=== PATIENT | male | born 1935 | race Caucasian/White ===

== ENCOUNTER 2023-03-06 12:05 | Observation (INO) | payer MEDICARE, SELFPAY ==
[2023-03-06] VITALS (27 sets, daily range): BP systolic 132–158; BP diastolic 63–87; PULSE 68–79; RESP 17–26; TEMP 36.3–36.9; O2SAT 84–100
--- NOTE | ~2023-03-06 | XR_ITS ---
EXAMINATION: XR hip RT min 2V DATE: 03/14/2023 14:00 INDICATION: Right hip pain. TECHNIQUE: 2 views of right hip were obtained. COMPARISON: CT abdomen and pelvis 04/10/2023 FINDINGS: Bone alignment normal. No fracture. There is moderate right hip osteoarthritis. IMPRESSION: 1. Moderate right hip osteoarthritis. Reviewed, dictated and finalized at location A.
--- NOTE | ~2023-03-06 | CT_ITS ---
Noncontrast CT scan of the thoracolumbar spine CLINICAL HISTORY: Trauma TECHNIQUE: Axial noncontrast imaging of the thoracolumbar spine was performed. Sagittal and coronal r eformatted images were constructed. Dose reduction technique was used on this scan by utilizing autom ated exposure control and iterative reconstruction technique. The dose-length product (DLP) was 1446. 91 mGy-cm. Thoracic spine findings: There is no fracture or subluxation of the thoracic spine. There is kyphosis . There are diffuse anterior flowing osteophytes with minimal disc space narrowing, consistent with D NEY. No definite significant disc bulge or herniation seen in the thoracic spine. No definite canal stenos is or cord compression. There are multiple subacute to chronic rib fracture deformities on the right side. Extensive calcified right pleural plaques are present. There is probable moderate to severe emp hysema in the right lung with right basilar scarring or atelectasis. Lumbar spine findings: There is a comminuted fracture involving the superior aspect of the L2 vertebr al body, fracture through anterior flowing osteophyte as well, and fracture extending to the junction of the bilateral pedicles with the vertebral body. There is a probable longitudinal fracture line ex tending inferiorly to the posterior aspect of the vertebral body. There is minimal loss of height. No other fracture or subluxation seen. Intervertebral disc spaces are relatively well-preserved. No definite canal stenosis or cord compression seen in the lumbar spine. There is moderate to advance d left neural foraminal narrowing at L5-S1. There is moderate to advanced left neural foraminal narro wing at L4-L5. There is mild right neural foraminal narrowing at L3-L4 and L4-L5. There is mild to mo derate bilateral neural foraminal narrowing at L2-L3. Impression: Comminuted, predominantly horizontal fracture through L2 vertebral body, with additional fracture evan es extending to the junction of the bilateral pedicles with the L2 vertebral body. No fracture or subluxation thoracic spine. Degenerative changes, as above. Reviewed, dictated and finalized at [facility]. Impression: Comminuted, predominantly horizontal fracture through L2 vertebral body, with a dditional fracture lines extending to the junction of the bilateral pedicles wi th the L2 vertebral body. No fracture or subluxation thoracic spine. Degenerative changes, as above.
--- NOTE | ~2023-03-06 | US_ITS ---
EXAMINATION: US venous doppler [facility] DATE: 03/07/2023 13:27 INDICATION: Lower limb swelling TECHNIQUE: Grayscale ultrasound images without and with compression and Doppler ultrasound images of the bilateral lower extremity veins were obtained. COMPARISON: None. FINDINGS: The visualized portions of right common femoral vein, profunda (deep) femoral vein, femoral vein, pop liteal vein, posterior tibial veins, peroneal veins, gastrocnemius vein and greater saphenous vein ou tflow are patent. The visualized portions of left common femoral vein, profunda femoral vein, femoral vein, popliteal v ein, posterior tibial veins, peroneal veins, gastrocnemius vein and greater saphenous vein outflow ar e patent. IMPRESSION: 1. No deep venous thrombosis in either lower limb. Reviewed, dictated and finalized at location A.
--- NOTE | ~2023-03-06 | CT_ITS ---
EXAMINATION: CT abdomen pelvis wo con DATE: 03/11/2023 14:49 INDICATION: pain TECHNIQUE: Computed tomography (CT) of the abdomen and pelvis was performed without intravenous contr ast. Automated exposure control and iterative reconstruction technique were employed. The dose-length product was 1111.63 mGy-cm. COMPARISON: CT thoracic lumbar 03/06/2023. FINDINGS: Lower thorax: Aortic and coronary artery calcification. Motion artifact. Left basilar atelectasis. Mo derate hiatal hernia. Liver: Normal. Biliary/Gallbladder: Multiple gallstones. Mild gallbladder dilation. Mild surrounding inflammatory ch yony. No bile duct dilation. Pancreas: Mild atrophy. Spleen: Normal. Adrenals:Somewhat nodular left adrenal. Right adrenal adenoma. Kidneys: Simple left midpole cyst. Moderate left perinephric stranding. Right renal atrophy. GI tract: No small or large bowel dilation. Appendix not confidently visualized, may be surgically ab sent or obscured by motion Diverticulosis without diverticulitis. Mesentery/Peritoneum: No ascites, mass, or free air. Retroperitoneum: No mass. Atherosclerotic abdominal aortic and/or arterial calcifications. Pelvis: Mild wall thickening and inflammatory change in a distended urinary bladder. Prostatomegaly. With prostatic calcification. Soft Tissues: Mild body wall edema. Small uncomplicated fat-containing umbilical and bilateral inguin al hernias. Bones: No acute osseous finding. Multiple old right rib fractures. Redemonstration of the L2 burst f racture IMPRESSION: Cholelithiasis with gallbladder hydrops and inflammation, may represent cholecystitis in the appropri ate clinical context. Bladder wall thickening/inflammation may be secondary to cystitis and/or outlet obstruction. Reviewed, dictated and finalized at location K. IMPRESSION: Cholelithiasis with gallbladder hydrops and inflammation, may represent cholecy stitis in the appropriate clinical context. Bladder wall thickening/inflammation may be secondary to cystitis and/or outlet obstruction.
[2023-03-06] MEDS: KETOROLAC 15 MG/ML VIAL (*BKC) IV PUSH (13:32)
[2023-03-06] MEDS: fentaNYL CITRATE INJ (*CRX) 100 MCG/2 ML VIAL 25 MCG IV PUSH (13:33)
--- NOTE | 2023-03-06 15:46 | ED.FALL ---
HPI - Fall General Chief Complaint: Fall Stated Complaint: fall Time Seen by Provider: 03/06/23 12:46 History of Present Illness HPI Narrative: Patient is an 88-year-old male who presents ER with low back pain. Patient was making a turn at home when he fell 3 days ago. He fell directly onto his buttock. He is able to get up and move around. Over the last few days he has had slow increase in the discomfort in his low back. He is now unable to sit up in bed or walk around due to his pain. No lower extremity numbness or weakness. No difficulty with urination. He did not strike his head or lose consciousness. Related Data Home Medications Medication Instructions Recorded Confirmed [id number] 300 mcg-K 60 1 tablet PO DAILY 06/04/19 02/15/23 mcg-lycop 600 mcg-lutein 300 mcg tablet (Centrum Silver Men) cholecalciferol (vitamin D3) 50 2,000 unit PO DAILY 08/08/19 02/15/23 mcg (2,000 unit) tablet cyanocobalamin (vitamin B-12) 1,000 mcg PO DAILY 01/06/20 02/15/23 1,000 mcg tablet sacubitril 24 mg-valsartan 26 mg 1 tablet PO BID 04/21/22 02/15/23 tablet (Entresto) empagliflozin 10 mg tablet 10 mg PO QAM 02/15/23 02/15/23 (Jardiance) Allergies Allergy/AdvReac Type Severity Reaction Status Date / Time Penicillins Allergy Unknown Unknown Verified 03/06/23 17:23 Review of Systems Review of Systems: All systems reviewed & are unremarkable except as noted in HPI and below Constitutional: Constitutional: Denies chills, Denies fatigue and Denies fever(s) ENT: Denies nasal congestion and Denies sore throat Cardiovascular: Cardiovascular: Denies chest pain, Denies rapid heart rate and Denies radiating jaw, neck or arm pain Respiratory: Respiratory: Denies cough and Denies dyspnea Gastrointestinal: Gastrointestinal: Denies abdominal pain, Denies nausea and Denies vomiting Musculoskeletal: Musculoskeletal: Reports back pain, Denies arthralgias and Denies joint swelling Neurologic: Denies headache(s), Denies focal weakness and Denies numbness PMF Past Medical History Medical History (Updated 03/06/23 @ 17:28 by Anthony Rachel MD) Abnormal fasting glucose glucose 104 and hemoglobin A1c 6.0 on 07/14/2021. Glucose 94.1, hemoglobin A1c 6.3 07/28/2022. Fasting glucose 112 on 01/05/2023. Acute non-recurrent maxillary sinusitis Anemia hemoglobin 11.5, hematocrit 37.5, iron 80, vitamin B12 726 and folic acid 12.9 on 07/14/2021. hemoglobin 10.5, hematocrit 34.7, MCV 100.3, iron 75 with 30% saturation and ferritin 46 with vitamin B12 448 and folic acid 15.3 on 07/28/2022. At high risk for falls (~2021) BMI 30.0-30.9,adult BMI 31.0-31.9,adult BPH without obstruction/lower urinary tract symptoms CHF (congestive heart failure) (04/20/22) diastolic dysfunction Chronic anxiety Edema, peripheral Essential (primary) hypertension Hyperproteinemia protein level chronically elevated with current level 9.8 on 07/14/2021 Hypothyroidism TSH 4.01 on 07/14/2021. TSH 3.94 on 07/28/2022. Lung cancer Mild intermittent asthma in adult without complication Mixed hyperlipidemia total cholesterol 120, triglycerides 99, HDL 25, LDL 75 on 07/14/2021. Total cholesterol 103, triglycerides 134, HDL 21 and LDL 55 on 07/28/22. Cholesterol 101, triglycerides 101, HDL 19, LDL 62 on 01/05/2023. Obesity (BMI 30.0-34.9) Obstructive sleep apnea (09/25/20) home sleep study 09/25/2020 with AHI of 8.9 with oxygen desaturation to 75% ordered by ironer sock Osteoarthritis involving multiple joints on both sides of body Seasonal allergic rhinitis Tachycardia UTI (urinary tract infection) urinalysis negative on 07/14/2021 Vitamin B12 deficiency anemia level 726 on 07/14/2021. Normal at 448 with folic acid 15.3 and hemoglobin 10.5 on 07/28/2022. Vitamin D deficiency, unspecified level normal at 34.8 on 07/14/2021. Normal at 53.7 on 07/28/2022. Social History Social History (Updated 08/03/22 @ 13:17 by Michelle Snow MA) [place]
[2023-03-06 16:10] LABS: Basophils Percent Auto 0.1 % (0.2-1.2); Hemoglobin 9.8 g/dL (14.0-18.0); Immature Granulocyte Absolute 0.06 K/mm3 (0.00-0.031); Immature Granulocyte Percent A 0.9 % (0-0.5); Lymphocytes Percent Auto 28.4 % (18.3-44.2); Mean Corpuscular HGB Conc 30.6 g/dl (32-36); Mean Corpuscular Hemoglobin 29.6 pg (26-34); Mean Corpuscular Volume 96.7 fl (80-100); Mean Platelet Volume 9.4 fl (7.4-10.4); Monocytes Absolute Auto 0.7 K/mm3 (0.1-0.6); Monocytes Percent Auto 10.1 % (2.6-8.5); Neutrophils Absolute Auto 4.1 K/mm3 (1.3-6.7); Neutrophils Percent Auto 60.5 % (45.5-73.1); Platelet Count Result 170 k/mm3 (150-375); Red Blood Count 3.31 M/mm3 (4.6-6.20); Red Cell Distribution Width 17.3 % (11.5-14.5); White Blood Count 6.7 K/mm3 (4.5-10.0)
[2023-03-06 16:19] LABS: Alanine Aminotransferase 12 U/L (6-50); Albumin Level 3.3 g/dL (3.5-5.1); Alkaline Phosphatase 82 U/L (38-126); Anion Gap 7 mmol/L (8-16); Aspartate Amino Transferase 29 U/L (17-59); Bilirubin,Total 0.7 mg/dL (0.2-1.3); Blood Urea Nitrogen 29 mg/dL (9-20); Calcium 9.4 mg/dL (8.4-10.2); Carbon Dioxide 32 mmol/L (22-30); Chloride 98 mmol/L (98-107); Estimated CRCL calculation 57 ml/min; Estimated Glomerular Filt Rate > 60; Glucose 111 mg/dL (65-110); Potassium 4.1 mmol/L (3.4-5.0); Sodium 137 mmol/L (137-145)
[2023-03-06 16:22] LABS: INR 1.3; Prothrombin Time 16.8 Seconds (11.1-14.7)
[2023-03-06 16:23] LABS: Partial Thromboplastin Time 39.9 SECONDS (22.3-36.8)
[2023-03-06] MEDS: HYDROcodone/acetaminophen (*CRX) 5-325 MG TABLET 1 TAB PO ×2 (17:19→20:40)
--- NOTE | 2023-03-06 17:28 | PC.NURSE ---
dinner tray ordered for pt and requested it to be sent to room 307
--- NOTE | 2023-03-06 23:02 | PM.IMHP ---
H&P: HPI History of Present Illness Date/Time: 03/06/23 17:30 Chief Complaint: Back pain. Narrative: This is a very pleasant 88-year-old male with multiple medical problems including history of lung cancer status post right middle lobectomy, diastolic congestive heart failure, hypertension, hypothyroidism, asthma, and other comorbidities who presented to the emergency department via private vehicle from home for evaluation of back pain. The patient provides the following history. Last he was standing with his wheeled walker when he turned to say something to his . When he turned back around his foot got tripped up in the will and he fell down onto his right buttock and side. He had immediate pain in the right low back and was able to get himself to the doorway however could not pull himself up. Son came over and helped him up to bed. He was able to fall asleep after taking some Tylenol but he reports showed severe, sharp, catching pain every time he stands up. His pain is somewhat better when sitting straight forward. Due to persistent pain he decided to come in today for evaluation. He denies lower extremity weakness, numbness, paresthesias, and difficulties urinating. He denies head trauma and loss of consciousness in the fall and has no other complaints of pain. CT of the thoracic and lumbar spine showed a comminuted, predominantly horizontal fracture through to L2 vertebral body with additional fracture lines extending to the junction of the bilateral pedicles with in the L2 vertebral body. The ED physician spoke with the neurosurgeon on-call, Dr. Bingham, and she recommends the patient be admitted for bed rest and he will require bracing tomorrow. Review of Systems Review of Systems: Twelve systems were reviewed and are negative except for as per HPI. [facility] Past Medical History Medical History (Updated 03/06/23 @ 23:11 by Carla Anderson PA-C) Abnormal fasting glucose glucose 104 and hemoglobin A1c 6.0 on 07/14/2021. Glucose 94.1, hemoglobin A1c 6.3 07/28/2022. Fasting glucose 112 on 01/05/2023. Acute non-recurrent maxillary sinusitis Anemia hemoglobin 11.5, hematocrit 37.5, iron 80, vitamin B12 726 and folic acid 12.9 on 07/14/2021. hemoglobin 10.5, hematocrit 34.7, MCV 100.3, iron 75 with 30% saturation and ferritin 46 with vitamin B12 448 and folic acid 15.3 on 07/28/2022. At high risk for falls (~2021) BMI 30.0-30.9,adult BMI 31.0-31.9,adult BPH without obstruction/lower urinary tract symptoms CHF (congestive heart failure) (04/20/22) diastolic dysfunction Chronic anxiety Edema, peripheral Essential (primary) hypertension Hyperproteinemia protein level chronically elevated with current level 9.8 on 07/14/2021 Hypothyroidism TSH 4.01 on 07/14/2021. TSH 3.94 on 07/28/2022. Lung cancer Mild intermittent asthma in adult without complication Mixed hyperlipidemia total cholesterol 120, triglycerides 99, HDL 25, LDL 75 on 07/14/2021. Total cholesterol 103, triglycerides 134, HDL 21 and LDL 55 on 07/28/22. Cholesterol 101, triglycerides 101, HDL 19, LDL 62 on 01/05/2023. Obesity (BMI 30.0-34.9) Obstructive sleep apnea (09/25/20) home sleep study 09/25/2020 with AHI of 8.9 with oxygen desaturation to 75% ordered by aligner Osteoarthritis involving multiple joints on both sides of body Seasonal allergic rhinitis Tachycardia UTI (urinary tract infection) urinalysis negative on 07/14/2021 Vitamin B12 deficiency anemia level 726 on 07/14/2021. Normal at 448 with folic acid 15.3 and hemoglobin 10.5 on 07/28/2022. Vitamin D deficiency, unspecified level normal at 34.8 on 07/14/2021. Normal at 53.7 on 07/28/2022. Surgical History Surgical History (Updated 03/06/23 @ 23:08 by Carla Anderson PA-C) History of lobectomy of lung Right middle lobectomy for lung cancer. History of transurethral resection of prostate Family History Family History (Updated 03/06/23 @ 23:08 by Carla Anderson PA-C) [facility]
[2023-03-06] MEDS: ESCITALOPRAM OXALATE 10 MG TABLET PO (23:57)
[2023-03-06] MEDS: SACUBITRIL/VALSARTAN 24-26 MG TABLET 1 TAB PO (23:57)
[2023-03-07 06:00] VITALS: BP 110/79; PULSE 74; RESP 20; TEMP 36.5; O2SAT 100
[2023-03-07] MEDS: HYDROcodone/acetaminophen (*CRX) 5-325 MG TABLET 1 TAB PO ×3 (06:26→20:55)
[2023-03-07] MEDS: LEVOTHYROXINE SODIUM 50 MCG TABLET PO (06:26)
[2023-03-07 06:27] LABS: Hematocrit 32.6 % (42.0-52.0); Hemoglobin 9.9 g/dL (14.0-18.0); Mean Corpuscular HGB Conc 30.4 g/dl (32-36); Mean Corpuscular Hemoglobin 29.9 pg (26-34); Mean Corpuscular Volume 98.5 fl (80-100); Mean Platelet Volume 9.4 fl (7.4-10.4); Platelet Count Result 174 k/mm3 (150-375); Red Blood Count 3.31 M/mm3 (4.6-6.20); Red Cell Distribution Width 17.1 % (11.5-14.5); White Blood Count 5.5 K/mm3 (4.5-10.0)
[2023-03-07 06:42] LABS: Anion Gap 2 mmol/L (8-16); Blood Urea Nitrogen 26 mg/dL (9-20); Calcium 9.3 mg/dL (8.4-10.2); Carbon Dioxide 38 mmol/L (22-30); Chloride 97 mmol/L (98-107); Estimated CRCL calculation 65 ml/min; Estimated Glomerular Filt Rate > 60; Glucose 102 mg/dL (65-110); Magnesium 2.3 mg/dL (1.6-2.3); Potassium 4.1 mmol/L (3.4-5.0); Sodium 137 mmol/L (137-145)
[2023-03-07] MEDS: FLUTICASONE/SALMETEROL 45-21 MCG INHALER 1 PUFF 2 PUFF INHALATION ×2 (07:09→19:21)
[2023-03-07 07:10] VITALS: PULSE 68; RESP 16; O2SAT 96
[2023-03-07 08:00] VITALS: O2SAT 99
--- NOTE | 2023-03-07 08:26 | PM.IMPN ---
Progress Note: A&P Assessment and Plan (1) Closed L2 vertebral fracture: Onset Date: 03/06/23 Code(s): S32.029A - Unspecified fracture of second lumbar vertebra, initial encounter for closed fracture Status: Acute Assessment and Plan: The patient had a ground level fall on evening after getting tripped up in his walker as detailed in HPI. CT scan shows a comminuted fracture through L2 vertebral body. Patient denies focal weakness, abnormal sensation, urinary fecal incontinence Dr. Bingham, neurosurgery, was consulted by the ED physician she recommends bed rest and pain control. Plans are for brace placement Consult PT OT long term care pharmacist for evaluation system placement He will likely need retirement on discharge for rehab prior to returning home. (2) Chronic anemia: Code(s): D64.9 - Anemia, unspecified Status: Acute Assessment and Plan: He has not had labs done at this facility for couple of years. Monitor. (3) Asthma: Code(s): J45.909 - Unspecified asthma, uncomplicated Status: Acute Assessment and Plan: No acute issues. Hemoglobin stable Follow-up CBC, iron panel ferritin, stool guaiac (4) Diastolic congestive heart failure: Code(s): I50.30 - Unspecified diastolic (congestive) heart failure Status: Acute Assessment and Plan: Patient denies shortness of breath He has 2+ nonpitting edema of the lower extremities which family members report is chronic for which he wears compression stockings. He is otherwise clinically compensated. Continue Entresto. Patient has a fair amount of swelling in the lower legs. Venous Doppler ultrasounds ordered to rule out DVT. Subjective Date/time seen: 03/07/23 08:26 Interval history: I saw and examined today. Patient still has severe back pain worse with movement. Patient denies focal weakness abnormal sensation, urinary or fecal incontinence Exam Narrative: General: No obvious distress nontoxic-appearing male supine in bed in moderate pain. Weight: 86 kg. BMI: 27.2. HEENT: Normocephalic, atraumatic. PERRL, EOMI. Sclera anicteric. Oral mucosa is tacky. Neck: Supple. Respiratory: Respirations are nonlabored. Lung sounds are slightly diminished on the right but are otherwise clear to auscultation. Cardiovascular: Regular rate and rhythm with S1-S2. Gastrointestinal: Abdomen is soft, nontender, and nondistended with positive bowel sounds. Skin: Warm and dry. Extremities: No cyanosis or clubbing. Two to 3+ bilateral pedal edema to mid thighs. Radial and pedal pulses intact. Spine: Tender of low back. Neurological: Alert. Cranial nerves 2-12 are grossly intact. No gross focal deficits to casual conversation. He is neurovascular intact throughout the lower extremities with intact strength. Psychiatric: Pleasant and cooperative with normal mood and affect. Objective Data Vital Signs Vital Signs: Vital Signs - 24 hr 03/06/23 12:07 03/06/23 14:16 03/06/23 14:17 Temperature 97.3 F L Pulse Rate 79 Respiratory Rate 20 Blood Pressure 134/67 Pulse Oximetry 94 84 L 87 L Oxygen Delivery Room Air Room Air Nasal Cannula Oxygen Flow Rate 2 03/06/23 14:17 03/06/23 12:26 03/06/23 12:30 Temperature Pulse Rate 76 75 Respiratory Rate 20 25 H Blood Pressure Pulse Oximetry 97 91 90 Oxygen Delivery Nasal Cannula Oxygen Flow Rate 3 03/06/23 12:46 03/06/23 13:08 03/06/23 13:11 Temperature Pulse Rate 76 74 74 Respiratory Rate 23 H 24 H 23 H Blood Pressure 132/74 Pulse Oximetry 91 95 Oxygen Delivery Oxygen Flow Rate 03/06/23 13:17 03/06/23 13:30 03/06/23 13:31 Temperature Pulse Rate 74 74 74 Respiratory Rate 26 H 25 H 24 H Blood Pressure 139/76 Pulse Oximetry 90 Oxygen Delivery Oxygen Flow Rate 03/06/23 13:45 03/06/23 14:00 03/06/23 14:32 Temperature Pulse Rate 75 73 69 Respiratory Rate 2
[2023-03-07 08:46] LABS: Iron 43 ug/dL (49-181)
[2023-03-07 08:55] LABS: Percent Iron Saturation 18 % (20-50)
--- NOTE | 2023-03-07 09:58 | WPDNEUROSGPN ---
Subjective Date/time seen: 03/07/23 09:58 Interval history: Asked to review CT on faye Roper Patient's lumbar CT shows compression / burst fracture of L2 that extends from anterior osteophyte through vertebral body There appears to be a linear component to fracture involving one pedicle but other pedicle is intact and there is no evidence of posterior column involvement. Given pattern of fracture I would recommend LSO bracing (patient to wear brace at all times), and patient may mobilize once in brace. As faye is neurologically intact and as fracture does not appear grossly unstable, no indication for surgical intervention. Once fitted for brace, would recommend standing plain xrays prior to d/c from hospital, and faye can follow up in neurosurgical clinic in 3-4 weeks for repeat xrays. Please call with any further questions Objective Data Vital Signs Vital Signs: Vital Signs - 24 hr 03/06/23 12:07 03/06/23 14:16 03/06/23 14:17 Temperature 97.3 F L Pulse Rate 79 Respiratory Rate 20 Blood Pressure 134/67 Pulse Oximetry 94 84 L 87 L Oxygen Delivery Room Air Room Air Nasal Cannula Oxygen Flow Rate 2 03/06/23 14:17 03/06/23 12:26 03/06/23 12:30 Temperature Pulse Rate 76 75 Respiratory Rate 20 25 H Blood Pressure Pulse Oximetry 97 91 90 Oxygen Delivery Nasal Cannula Oxygen Flow Rate 3 03/06/23 12:46 03/06/23 13:08 03/06/23 13:11 Temperature Pulse Rate 76 74 74 Respiratory Rate 23 H 24 H 23 H Blood Pressure 132/74 Pulse Oximetry 91 95 Oxygen Delivery Oxygen Flow Rate 03/06/23 13:17 03/06/23 13:30 03/06/23 13:31 Temperature Pulse Rate 74 74 74 Respiratory Rate 26 H 25 H 24 H Blood Pressure 139/76 Pulse Oximetry 90 Oxygen Delivery Oxygen Flow Rate 03/06/23 13:45 03/06/23 14:00 03/06/23 14:32 Temperature Pulse Rate 75 73 69 Respiratory Rate 26 H 21 H 17 Blood Pressure Pulse Oximetry 86 L 88 L 98 Oxygen Delivery Oxygen Flow Rate 03/06/23 14:33 03/06/23 14:45 03/06/23 15:05 Temperature Pulse Rate 71 68 69 Respiratory Rate 20 19 20 Blood Pressure 158/87 H Pulse Oximetry 98 99 99 Oxygen Delivery Oxygen Flow Rate 03/06/23 15:15 03/06/23 15:30 03/06/23 15:46 Temperature Pulse Rate 69 74 69 Respiratory Rate 21 H 18 20 Blood Pressure Pulse Oximetry 99 99 100 Oxygen Delivery Oxygen Flow Rate 03/06/23 16:00 03/06/23 16:16 03/06/23 16:30 Temperature Pulse Rate 73 71 71 Respiratory Rate 23 H 17 18 Blood Pressure Pulse Oximetry 99 99 98 Oxygen Delivery Oxygen Flow Rate 03/06/23 16:50 03/06/23 17:00 03/06/23 17:15 Temperature Pulse Rate 71 71 72 Respiratory Rate 20 17 21 H Blood Pressure Pulse Oximetry 98 99 98 Oxygen Delivery Oxygen Flow Rate 03/06/23 22:00 03/07/23 06:00 03/07/23 07:10 Temperature 98.4 F 97.7 F Pulse Rate 71 74 68 Respiratory Rate 20 20 16 Blood Pressure 145/63 H 110/79 Pulse Oximetry 99 100 96 Oxygen Delivery Nasal Cannula Oxygen Flow Rate 2 03/07/23 07:10 Temperature Pulse Rate 68 Respiratory Rate 16 Blood Pressure Pulse Oximetry Oxygen Delivery Oxygen Flow Rate Intake/Output Intake/Output: Intake & Output 03/04/23 03/05/23 03/06/23 03/07/23 23:59 23:59 23:59 23:59 Intake Total 50 Output Total 150 Balance -100 Meds/Results Medications: Active Medications Generic Name Dose Route Start Last Admin Trade Name Freq PRN Reason Stop Dose Admin Acetaminophen 650 mg 03/06/23 15:56 Acetaminophen 325 Mg Tablet PO Q4H PRN Mild Pain (1-3) or Fever Hydrocodone Bitart/Acetaminophen 1 tab 03/06/23 15:56 03/07/23 06:26 Hydrocodone/Acetaminophen (*Crx) 5-325 Mg Tablet PO 1 tab Q4H PRN Administration Pain Rated 4-6 Cyanocobalamin 1,000 mcg 03/07/23 09:00 Cyanocobalamin 1,000 Mcg Tablet PO DAILY [facility] Enoxaparin Sodium 40 mg 03/07/23 09:00 Enoxap
[2023-03-07] MEDS: OPTI-GEN TAB 1 TABLET PO (10:07)
[2023-03-07] MEDS: CHOLECALCIFEROL 1,000 UNITS TABLET 2000 UNITS PO (10:07)
[2023-03-07] MEDS: TAMSULOSIN HCL 0.4 MG CAPSULE PO (10:07)
[2023-03-07] MEDS: FINASTERIDE 5 MG TABLET PO (10:07)
[2023-03-07] MEDS: METOPROLOL SUCCINATE EXT REL 25 MG TABCR PO (10:07)
[2023-03-07] MEDS: FUROSEMIDE 40 MG TABLET PO (10:07)
[2023-03-07] MEDS: SACUBITRIL/VALSARTAN 24-26 MG TABLET 1 TAB PO ×2 (10:08→20:55)
[2023-03-07] MEDS: ENOXAPARIN 40 MG/0.4 ML SYRINGE SUB-Q (10:08)
[2023-03-07] MEDS: CYANOCOBALAMIN 1,000 MCG TABLET 1000 MCG PO (10:08)
[2023-03-07 14:00] VITALS: BP 141/75; PULSE 66; RESP 18; TEMP 36.3; O2SAT 99
[2023-03-07] MEDS: HYDROmorphone HCL INJ (*CRX) 1 MG/ML SYR 0.5 MG IV PUSH (14:32)
[2023-03-07 19:25] VITALS: PULSE 75; RESP 16; O2SAT 95
[2023-03-07] MEDS: ESCITALOPRAM OXALATE 10 MG TABLET PO (20:55)
[2023-03-07 21:15] VITALS: BP 109/49; PULSE 73; RESP 18; TEMP 37.6; O2SAT 95
[2023-03-08] VITALS (9 sets, daily range): BP systolic 91–110; BP diastolic 47–65; PULSE 68–85; RESP 16–18; TEMP 35.5–36.4; O2SAT 94–100
[2023-03-08] MEDS: HYDROcodone/acetaminophen (*CRX) 5-325 MG TABLET 1 TAB PO ×3 (04:53→21:33)
[2023-03-08] MEDS: LEVOTHYROXINE SODIUM 50 MCG TABLET PO (04:53)
[2023-03-08] MEDS: METOPROLOL SUCCINATE EXT REL 25 MG TABCR PO (09:14)
[2023-03-08] MEDS: FINASTERIDE 5 MG TABLET PO (09:15)
[2023-03-08] MEDS: SACUBITRIL/VALSARTAN 24-26 MG TABLET 1 TAB PO ×2 (09:15→21:34)
[2023-03-08] MEDS: FUROSEMIDE 40 MG TABLET PO (09:15)
[2023-03-08] MEDS: OPTI-GEN TAB 1 TABLET PO (09:15)
[2023-03-08] MEDS: CYANOCOBALAMIN 1,000 MCG TABLET 1000 MCG PO (09:15)
[2023-03-08] MEDS: CHOLECALCIFEROL 1,000 UNITS TABLET 2000 UNITS PO (09:15)
[2023-03-08] MEDS: TAMSULOSIN HCL 0.4 MG CAPSULE PO (09:15)
[2023-03-08] MEDS: ENOXAPARIN 40 MG/0.4 ML SYRINGE SUB-Q (09:16)
[2023-03-08] MEDS: FLUTICASONE/SALMETEROL 45-21 MCG INHALER 1 PUFF 2 PUFF INHALATION ×2 (09:17→20:15)
--- NOTE | 2023-03-08 11:26 | PM.IMPN ---
Progress Note: A&P Assessment and Plan (1) Closed L2 vertebral fracture: Onset Date: 03/06/23 Code(s): S32.029A - Unspecified fracture of second lumbar vertebra, initial encounter for closed fracture Status: Acute Assessment and Plan: The patient had a ground level fall on evening after getting tripped up in his walker as detailed in HPI. CT scan shows a comminuted fracture through L2 vertebral body. Patient denies focal weakness, abnormal sensation, urinary fecal incontinence Dr. Bingham, neurosurgery, was consulted by the ED physician she recommends bed rest and pain control. Plans are for brace placement Consult PT OT home care associate for evaluation system placement He will likely need shelter on discharge for rehab prior to returning home. (2) Chronic anemia: Code(s): D64.9 - Anemia, unspecified Status: Acute Assessment and Plan: He has not had labs done at this facility for couple of years. Monitor. (3) Asthma: Code(s): J45.909 - Unspecified asthma, uncomplicated Status: Acute Assessment and Plan: No acute issues. Hemoglobin stable Follow-up CBC, iron panel ferritin, stool guaiac (4) Diastolic congestive heart failure: Code(s): I50.30 - Unspecified diastolic (congestive) heart failure Status: Acute Assessment and Plan: Patient denies shortness of breath He has 2+ nonpitting edema of the lower extremities which family members report is chronic for which he wears compression stockings. He is otherwise clinically compensated. Continue Entresto. Patient has a fair amount of swelling in the lower legs. Venous Doppler ultrasounds ordered to rule out DVT. Subjective Date/time seen: 03/08/23 11:26 Interval history: No new complaints Exam Narrative: General: No obvious distress nontoxic-appearing male supine in bed in moderate pain. Weight: 86 kg. BMI: 27.2. HEENT: Normocephalic, atraumatic. PERRL, EOMI. Sclera anicteric. Oral mucosa is tacky. Neck: Supple. Respiratory: Respirations are nonlabored. Lung sounds are slightly diminished on the right but are otherwise clear to auscultation. Cardiovascular: Regular rate and rhythm with S1-S2. Gastrointestinal: Abdomen is soft, nontender, and nondistended with positive bowel sounds. Skin: Warm and dry. Extremities: No cyanosis or clubbing. Two to 3+ bilateral pedal edema to mid thighs. Radial and pedal pulses intact. Spine: Tender of low back. Neurological: Alert. Cranial nerves 2-12 are grossly intact. No gross focal deficits to casual conversation. He is neurovascular intact throughout the lower extremities with intact strength. Psychiatric: Pleasant and cooperative with normal mood and affect. Objective Data Vital Signs Vital Signs: Vital Signs - 24 hr 03/07/23 14:00 03/07/23 19:25 03/07/23 19:25 Temperature 97.3 F L Pulse Rate 66 75 75 Respiratory Rate 18 16 16 Blood Pressure 141/75 H Pulse Oximetry 99 95 Oxygen Delivery Nasal Cannula Oxygen Flow Rate 2 03/07/23 21:15 03/08/23 06:00 03/08/23 09:14 Temperature 99.6 F 96 F L Pulse Rate 73 68 72 Respiratory Rate 18 18 Blood Pressure 109/49 L 108/65 Pulse Oximetry 95 97 Oxygen Delivery Oxygen Flow Rate 03/08/23 09:17 03/08/23 08:00 Temperature Pulse Rate Respiratory Rate Blood Pressure Pulse Oximetry 96 96 Oxygen Delivery Nasal Cannula Nasal Cannula Oxygen Flow Rate 1 1 Intake/Output Intake/Output: Intake & Output 03/05/23 03/06/23 03/07/23 03/08/23 23:59 23:59 23:59 23:59 Intake Total 1250 170 Output Total 500 550 Balance 750 -380 Meds/Results Medications: Active Medications Generic Name Dose Route Start Last Admin Trade Name Freq PRN Reason Stop Dose Admin Acetaminophen 650 mg 03/06/23 15:56 Acetaminophen 325 Mg Tablet PO Q4H PRN Mild Pain (1-3) or Fever Hydrocodone Bitart/Acetaminophe
[2023-03-08] MEDS: polyethylene glycoL 3350 17 GM POWD.PACK PO (17:02)
[2023-03-08] MEDS: ESCITALOPRAM OXALATE 10 MG TABLET PO (21:34)
[2023-03-09] VITALS (7 sets, daily range): BP systolic 96–102; BP diastolic 41–49; PULSE 70–80; RESP 13–20; TEMP 35.9–36.6; O2SAT 91–96; BMI 26.9
[2023-03-09] MEDS: HYDROcodone/acetaminophen (*CRX) 5-325 MG TABLET 1 TAB PO ×3 (04:50→15:24)
[2023-03-09] MEDS: LEVOTHYROXINE SODIUM 50 MCG TABLET PO (04:50)
[2023-03-09] MEDS: ENOXAPARIN 40 MG/0.4 ML SYRINGE SUB-Q (08:24)
[2023-03-09] MEDS: METOPROLOL SUCCINATE EXT REL 25 MG TABCR PO (08:24)
[2023-03-09] MEDS: TAMSULOSIN HCL 0.4 MG CAPSULE PO (08:25)
[2023-03-09] MEDS: CYANOCOBALAMIN 1,000 MCG TABLET 1000 MCG PO (08:25)
[2023-03-09] MEDS: FUROSEMIDE 40 MG TABLET PO (08:25)
[2023-03-09] MEDS: SACUBITRIL/VALSARTAN 24-26 MG TABLET 1 TAB PO ×2 (08:25→20:30)
[2023-03-09] MEDS: SENNOSIDES 8.6 MG TABLET PO (08:25)
[2023-03-09] MEDS: FINASTERIDE 5 MG TABLET PO (08:26)
[2023-03-09] MEDS: CHOLECALCIFEROL 1,000 UNITS TABLET 2000 UNITS PO (08:26)
[2023-03-09] MEDS: OPTI-GEN TAB 1 TABLET PO (08:26)
[2023-03-09] MEDS: FLUTICASONE/SALMETEROL 45-21 MCG INHALER 1 PUFF 2 PUFF INHALATION ×2 (08:41→20:10)
--- NOTE | 2023-03-09 08:52 | PCPTNOTE ---
Attempted to see patient for PT, however patient was just getting breakfast.
--- NOTE | 2023-03-09 10:36 | PM.IMPN ---
Progress Note: A&P Assessment and Plan (1) Closed L2 vertebral fracture: Onset Date: 03/06/23 Code(s): S32.029A - Unspecified fracture of second lumbar vertebra, initial encounter for closed fracture Status: Acute Assessment and Plan: Continue therapy and continue brace. Appropriate for rehab (2) Chronic anemia: Code(s): D64.9 - Anemia, unspecified Status: Acute Assessment and Plan: He has not had labs done at this facility for couple of years. Monitor. (3) Asthma: Code(s): J45.909 - Unspecified asthma, uncomplicated Status: Acute Assessment and Plan: No acute issues. Hemoglobin stable Follow-up CBC, iron panel ferritin, stool guaiac (4) Diastolic congestive heart failure: Code(s): I50.30 - Unspecified diastolic (congestive) heart failure Status: Acute Assessment and Plan: Patient denies shortness of breath He has 2+ nonpitting edema of the lower extremities which family members report is chronic for which he wears compression stockings. He is otherwise clinically compensated. Continue Entresto. Patient has a fair amount of swelling in the lower legs. Venous Doppler ultrasounds ordered to rule out DVT. Subjective Date/time seen: 03/09/23 10:36 Interval history: Pain controlled. Using brace and working therapy Exam Narrative: General: No obvious distress nontoxic-appearing male supine in bed in moderate pain. Weight: 86 kg. BMI: 27.2. HEENT: Normocephalic, atraumatic. PERRL, EOMI. Sclera anicteric. Oral mucosa is tacky. Neck: Supple. Respiratory: Respirations are nonlabored. Lung sounds are slightly diminished on the right but are otherwise clear to auscultation. Cardiovascular: Regular rate and rhythm with S1-S2. Gastrointestinal: Abdomen is soft, nontender, and nondistended with positive bowel sounds. Skin: Warm and dry. Extremities: No cyanosis or clubbing. Two to 3+ bilateral pedal edema to mid thighs. Radial and pedal pulses intact. Spine: Tender of low back. Neurological: Alert. Cranial nerves 2-12 are grossly intact. No gross focal deficits to casual conversation. He is neurovascular intact throughout the lower extremities with intact strength. Psychiatric: Pleasant and cooperative with normal mood and affect. Objective Data Vital Signs Vital Signs: Vital Signs - 24 hr 03/08/23 11:32 03/08/23 13:15 03/08/23 14:00 Temperature 97.2 F L Pulse Rate 81 Respiratory Rate 18 Blood Pressure 91/60 L Pulse Oximetry 100 Oxygen Delivery Room Air Nasal Cannula Oxygen Flow Rate 2 03/08/23 17:14 03/08/23 20:17 03/08/23 20:18 Temperature Pulse Rate 75 Respiratory Rate 16 Blood Pressure 110/62 Pulse Oximetry 95 Oxygen Delivery Nasal Cannula Oxygen Flow Rate 1 03/08/23 22:00 03/09/23 06:00 03/09/23 08:24 Temperature 97.5 F L 96.7 F L Pulse Rate 85 73 76 Respiratory Rate 18 18 Blood Pressure 93/47 L 102/41 L Pulse Oximetry 94 93 Oxygen Delivery Oxygen Flow Rate 03/09/23 08:41 Temperature Pulse Rate Respiratory Rate Blood Pressure Pulse Oximetry 95 Oxygen Delivery Nasal Cannula Oxygen Flow Rate 1 Intake/Output Intake/Output: Intake & Output 03/06/23 03/07/23 03/08/23 03/09/23 23:59 23:59 23:59 23:59 Intake Total 1250 288 210 Output Total 500 700 450 Balance 750 -412 -240 Meds/Results Medications: Active Medications Generic Name Dose Route Start Last Admin Trade Name Freq PRN Reason Stop Dose Admin Acetaminophen 650 mg 03/06/23 15:56 Acetaminophen 325 Mg Tablet PO Q4H PRN Mild Pain (1-3) or Fever Hydrocodone Bitart/Acetaminophen 1 tab 03/06/23 15:56 03/09/23 10:17 Hydrocodone/Acetaminophen (*Crx) 5-325 Mg Tablet PO 1 tab Q4H PRN Administration Pain Rated 4-6 Cyanocobalamin 1,000 mcg 03/07/23 09:00 03/09/23 08:25 Cyanocobalamin 1,000 Mcg Tablet PO 1,000 mcg D
[2023-03-09 11:39] LABS: Basophils Percent Auto 0.2 % (0.2-1.2); Eosinophils Percent Auto 0.4 % (0-4.4); Hematocrit 34.2 % (42.0-52.0); Hemoglobin 10.3 g/dL (14.0-18.0); Immature Granulocyte Absolute 0.02 K/mm3 (0.00-0.031); Immature Granulocyte Percent A 0.4 % (0-0.5); Lymphocytes Absolute Auto 1.28 K/mm3 (0.9-3.2); Mean Corpuscular HGB Conc 30.1 g/dl (32-36); Mean Corpuscular Hemoglobin 29.9 pg (26-34); Mean Corpuscular Volume 99.1 fl (80-100); Mean Platelet Volume 9.3 fl (7.4-10.4); Monocytes Absolute Auto 0.6 K/mm3 (0.1-0.6); Platelet Count Result 209 k/mm3 (150-375); Red Blood Count 3.45 M/mm3 (4.6-6.20); Red Cell Distribution Width 16.8 % (11.5-14.5); White Blood Count 4.9 K/mm3 (4.5-10.0)
[2023-03-09 11:52] LABS: Anion Gap 2 mmol/L (8-16); Blood Urea Nitrogen 24 mg/dL (9-20); Calcium 9.5 mg/dL (8.4-10.2); Carbon Dioxide 37 mmol/L (22-30); Chloride 94 mmol/L (98-107); Estimated CRCL calculation 57 ml/min; Estimated Glomerular Filt Rate > 60; Glucose 135 mg/dL (65-110); Potassium 4.4 mmol/L (3.4-5.0); Sodium 133 mmol/L (137-145)
[2023-03-09] MEDS: ESCITALOPRAM OXALATE 10 MG TABLET PO (20:30)
[2023-03-10] VITALS (7 sets, daily range): BP systolic 96–117; BP diastolic 49–57; PULSE 72–77; RESP 12–18; TEMP 36.1–36.4; O2SAT 92–97
[2023-03-10] MEDS: LEVOTHYROXINE SODIUM 50 MCG TABLET PO (06:05)
[2023-03-10 06:14] LABS: Blood Urea Nitrogen 22 mg/dL (9-20); Calcium 8.9 mg/dL (8.4-10.2); Carbon Dioxide > 40 mmol/L (22-30); Chloride 93 mmol/L (98-107); Estimated CRCL calculation 65 ml/min; Estimated Glomerular Filt Rate > 60; Glucose 98 mg/dL (65-110); Potassium 4.2 mmol/L (3.4-5.0); Sodium 134 mmol/L (137-145)
[2023-03-10] MEDS: FLUTICASONE/SALMETEROL 45-21 MCG INHALER 1 PUFF 2 PUFF INHALATION ×2 (06:56→21:30)
[2023-03-10] MEDS: METOPROLOL SUCCINATE EXT REL 25 MG TABCR PO (09:43)
[2023-03-10] MEDS: SENNOSIDES 8.6 MG TABLET PO (09:43)
[2023-03-10] MEDS: OPTI-GEN TAB 1 TABLET PO (09:43)
[2023-03-10] MEDS: SACUBITRIL/VALSARTAN 24-26 MG TABLET 1 TAB PO ×2 (09:43→21:20)
[2023-03-10] MEDS: FUROSEMIDE 40 MG TABLET PO (09:43)
[2023-03-10] MEDS: FINASTERIDE 5 MG TABLET PO (09:43)
[2023-03-10] MEDS: CYANOCOBALAMIN 1,000 MCG TABLET 1000 MCG PO (09:43)
[2023-03-10] MEDS: TAMSULOSIN HCL 0.4 MG CAPSULE PO (09:43)
[2023-03-10] MEDS: CHOLECALCIFEROL 1,000 UNITS TABLET 2000 UNITS PO (09:43)
[2023-03-10] MEDS: ENOXAPARIN 40 MG/0.4 ML SYRINGE SUB-Q (09:44)
[2023-03-10] MEDS: ACETAMINOPHEN 325 MG TABLET 650 MG PO ×2 (09:48→21:19)
--- NOTE | 2023-03-10 12:07 | PM.IMPN ---
Progress Note: A&P Assessment and Plan (1) Closed L2 vertebral fracture: Onset Date: 03/06/23 Code(s): S32.029A - Unspecified fracture of second lumbar vertebra, initial encounter for closed fracture Status: Acute Assessment and Plan: Continue therapy and continue brace. Appropriate for rehab (2) Chronic anemia: Code(s): D64.9 - Anemia, unspecified Status: Acute Assessment and Plan: He has not had labs done at this facility for couple of years. Monitor. (3) Asthma: Code(s): J45.909 - Unspecified asthma, uncomplicated Status: Acute Assessment and Plan: No acute issues. Hemoglobin stable Follow-up CBC, iron panel ferritin, stool guaiac (4) Diastolic congestive heart failure: Code(s): I50.30 - Unspecified diastolic (congestive) heart failure Status: Acute Assessment and Plan: Patient denies shortness of breath He has 2+ nonpitting edema of the lower extremities which family members report is chronic for which he wears compression stockings. He is otherwise clinically compensated. Continue Entresto. Patient has a fair amount of swelling in the lower legs. Venous Doppler ultrasounds ordered to rule out DVT. (5) Constipation: Code(s): K59.00 - Constipation, unspecified Status: Acute Assessment and Plan: senna and enema as needed Subjective Date/time seen: 03/10/23 12:07 Interval history: no new issues Exam Narrative: General: No obvious distress nontoxic-appearing male supine in bed in moderate pain. Weight: 86 kg. BMI: 27.2. HEENT: Normocephalic, atraumatic. PERRL, EOMI. Sclera anicteric. Oral mucosa is tacky. Neck: Supple. Respiratory: Respirations are nonlabored. Lung sounds are slightly diminished on the right but are otherwise clear to auscultation. Cardiovascular: Regular rate and rhythm with S1-S2. Gastrointestinal: Abdomen is soft, nontender, and nondistended with positive bowel sounds. Skin: Warm and dry. Extremities: No cyanosis or clubbing. Two to 3+ bilateral pedal edema to mid thighs. Radial and pedal pulses intact. Spine: Tender of low back. Neurological: Alert. Cranial nerves 2-12 are grossly intact. No gross focal deficits to casual conversation. He is neurovascular intact throughout the lower extremities with intact strength. Psychiatric: Pleasant and cooperative with normal mood and affect. Objective Data Vital Signs Vital Signs: Vital Signs - 24 hr 03/09/23 14:00 03/09/23 20:14 03/09/23 21:32 Temperature 97.8 F 97.6 F Pulse Rate 70 80 Respiratory Rate 20 13 Blood Pressure 96/46 L 100/49 L Pulse Oximetry 91 95 96 Oxygen Delivery Nasal Cannula Oxygen Flow Rate 1 03/10/23 05:34 03/10/23 06:55 03/10/23 06:55 Temperature 97.5 F L Pulse Rate 75 76 76 Respiratory Rate 12 16 16 Blood Pressure 105/49 L Pulse Oximetry 97 93 Oxygen Delivery Nasal Cannula Oxygen Flow Rate 1 03/10/23 09:43 03/10/23 08:00 Temperature Pulse Rate 76 Respiratory Rate Blood Pressure Pulse Oximetry Oxygen Delivery Room Air Oxygen Flow Rate Intake/Output Intake/Output: Intake & Output 03/07/23 03/08/23 03/09/23 03/10/23 23:59 23:59 23:59 23:59 Intake Total 1250 288 530 500 Output Total 086 699 4884 400 Balance 750 -412 -820 100 Meds/Results Medications: Active Medications Generic Name Dose Route Start Last Admin Trade Name Freq PRN Reason Stop Dose Admin Acetaminophen 650 mg 03/06/23 15:56 03/10/23 09:48 Acetaminophen 325 Mg Tablet PO 650 mg Q4H PRN Administration Mild Pain (1-3) or Fever Hydrocodone Bitart/Acetaminophen 1 tab 03/06/23 15:56 03/09/23 15:24 Hydrocodone/Acetaminophen (*Crx) 5-325 Mg Tablet PO 1 tab Q4H PRN Administration Pain Rated 4-6 Cyanocobalamin 1,000 mcg 03/07/23 09:00 03/10/23 09:43 Cyanocobalamin 1,000 Mcg Tablet PO 1,000 mcg DAILY [facility] Administr
[2023-03-10] MEDS: ESCITALOPRAM OXALATE 10 MG TABLET PO (21:20)
[2023-03-11] MEDS: HYDROcodone/acetaminophen (*CRX) 5-325 MG TABLET 1 TAB PO ×4 (01:38→20:49)
[2023-03-11 05:42] VITALS: BP 116/68; PULSE 76; RESP 14; TEMP 35.7; O2SAT 94
[2023-03-11] MEDS: LEVOTHYROXINE SODIUM 50 MCG TABLET PO (05:57)
[2023-03-11] MEDS: ENOXAPARIN 40 MG/0.4 ML SYRINGE SUB-Q (09:03)
[2023-03-11 09:04] VITALS: PULSE 76
[2023-03-11] MEDS: TAMSULOSIN HCL 0.4 MG CAPSULE PO (09:04)
[2023-03-11] MEDS: CHOLECALCIFEROL 1,000 UNITS TABLET 2000 UNITS PO (09:04)
[2023-03-11] MEDS: CYANOCOBALAMIN 1,000 MCG TABLET 1000 MCG PO (09:04)
[2023-03-11] MEDS: FUROSEMIDE 40 MG TABLET PO (09:04)
[2023-03-11] MEDS: METOPROLOL SUCCINATE EXT REL 25 MG TABCR PO (09:04)
[2023-03-11] MEDS: FINASTERIDE 5 MG TABLET PO (09:04)
[2023-03-11] MEDS: SACUBITRIL/VALSARTAN 24-26 MG TABLET 1 TAB PO ×2 (09:04→20:49)
[2023-03-11] MEDS: SENNOSIDES 8.6 MG TABLET PO (09:04)
[2023-03-11] MEDS: OPTI-GEN TAB 1 TABLET PO (09:04)
[2023-03-11 09:20] VITALS: PULSE 77; RESP 18; O2SAT 93
[2023-03-11] MEDS: FLUTICASONE/SALMETEROL 45-21 MCG INHALER 1 PUFF 2 PUFF INHALATION ×2 (09:20→20:12)
--- NOTE | 2023-03-11 10:30 | PM.IMPN ---
Progress Note: A&P Assessment and Plan (1) Closed L2 vertebral fracture: Onset Date: 03/06/23 Code(s): S32.029A - Unspecified fracture of second lumbar vertebra, initial encounter for closed fracture Status: Acute Assessment and Plan: Continue therapy and continue brace. Appropriate for rehab (2) Chronic anemia: Code(s): D64.9 - Anemia, unspecified Status: Acute Assessment and Plan: He has not had labs done at this facility for couple of years. Monitor. (3) Asthma: Code(s): J45.909 - Unspecified asthma, uncomplicated Status: Acute Assessment and Plan: No acute issues. Hemoglobin stable Follow-up CBC, iron panel ferritin, stool guaiac (4) Diastolic congestive heart failure: Code(s): I50.30 - Unspecified diastolic (congestive) heart failure Status: Acute Assessment and Plan: Compensated (5) Constipation: Code(s): K59.00 - Constipation, unspecified Status: Acute Assessment and Plan: Improved (6) Abdominal pain: Code(s): R10.9 - Unspecified abdominal pain Status: Acute Assessment and Plan: Will get CT scan Subjective Date/time seen: 03/11/23 10:30 Interval history: Complaints of left lower quadrant abdominal pain. Large BM overnight Exam Narrative: General: No obvious distress nontoxic-appearing male supine in bed in moderate pain. Weight: 86 kg. BMI: 27.2. HEENT: Normocephalic, atraumatic. PERRL, EOMI. Sclera anicteric. Oral mucosa is tacky. Neck: Supple. Respiratory: Respirations are nonlabored. Lung sounds are slightly diminished on the right but are otherwise clear to auscultation. Cardiovascular: Regular rate and rhythm with S1-S2. Gastrointestinal: Abdomen is soft, nontender, and nondistended with positive bowel sounds. Skin: Warm and dry. Extremities: No cyanosis or clubbing. Two to 3+ bilateral pedal edema to mid thighs. Radial and pedal pulses intact. Spine: Tender of low back. Neurological: Alert. Cranial nerves 2-12 are grossly intact. No gross focal deficits to casual conversation. He is neurovascular intact throughout the lower extremities with intact strength. Psychiatric: Pleasant and cooperative with normal mood and affect. Objective Data Vital Signs Vital Signs: Vital Signs - 24 hr 03/10/23 14:00 03/10/23 22:00 03/10/23 21:30 Temperature 96.9 F L 97.4 F L Pulse Rate 77 75 72 Respiratory Rate 18 14 16 Blood Pressure 96/49 L 117/57 L Pulse Oximetry 92 95 Oxygen Delivery Oxygen Flow Rate Fraction of Inspired Oxygen 03/10/23 21:32 03/11/23 05:42 03/11/23 07:51 Temperature 96.2 F L Pulse Rate 72 76 Respiratory Rate 16 14 Blood Pressure 116/68 Pulse Oximetry 97 94 Oxygen Delivery Nasal Cannula Room Air Oxygen Flow Rate 1 Fraction of Inspired Oxygen 24 03/11/23 09:04 03/11/23 09:20 03/11/23 09:20 Temperature Pulse Rate 76 77 77 Respiratory Rate 18 18 Blood Pressure Pulse Oximetry 93 Oxygen Delivery Nasal Cannula Oxygen Flow Rate 1 Fraction of Inspired Oxygen 24 Intake/Output Intake/Output: Intake & Output 03/08/23 03/09/23 03/10/23 03/11/23 23:59 23:59 23:59 23:59 Intake Total 141 500 7593 150 Output Total 700 1350 1300 300 Balance -412 -820 -80 -150 Meds/Results Medications: Active Medications Generic Name Dose Route Start Last Admin Trade Name Freq PRN Reason Stop Dose Admin Acetaminophen 650 mg 03/06/23 15:56 03/10/23 21:19 Acetaminophen 325 Mg Tablet PO 650 mg Q4H PRN Administration Mild Pain (1-3) or Fever Hydrocodone Bitart/Acetaminophen 1 tab 03/06/23 15:56 03/11/23 05:58 Hydrocodone/Acetaminophen (*Crx) 5-325 Mg Tablet PO 1 tab Q4H PRN Administration Pain Rated 4-6 Cyanocobalamin 1,000 mcg 03/07/23 09:00 03/11/23 09:04 Cyanocobalamin 1,000 Mcg Tablet PO 1,000 mcg DAILY [facility] Administration Enoxapar
--- NOTE | 2023-03-11 13:32 | PCOTNOTE ---
Attempted to see pt for Occupational Therapy treatment. Pt's family request that therapy being attempted tomorrow due to pt not feeling good today. RN reports that pt is in severe pain and will be going for a scan soon and request that therapy attempt tomorrow as well. Will continue per POC duration/frequency tomorrow when appropriate.
[2023-03-11 14:00] VITALS: BP 118/65; PULSE 68; RESP 16; TEMP 36.5; O2SAT 97
--- NOTE | 2023-03-11 14:52 | PCPTNOTE ---
Treatment held this date due to the patient not feeling well. Per the RN, the patient is in severe pain today and it would be best to hold of treatment until tomorrow. Will continue per PT plan of care.
[2023-03-11 20:14] VITALS: O2SAT 93
[2023-03-11] MEDS: ESCITALOPRAM OXALATE 10 MG TABLET PO (20:49)
[2023-03-11 22:00] VITALS: BP 113/49; PULSE 73; RESP 20; TEMP 36.2; O2SAT 95
[2023-03-12] VITALS (7 sets, daily range): BP systolic 96–102; BP diastolic 50–55; PULSE 69–82; RESP 16–20; TEMP 36.3–37.2; O2SAT 92–95
[2023-03-12] MEDS: HYDROcodone/acetaminophen (*CRX) 5-325 MG TABLET 1 TAB PO (05:48)
[2023-03-12] MEDS: LEVOTHYROXINE SODIUM 50 MCG TABLET PO (05:49)
[2023-03-12] MEDS: FLUTICASONE/SALMETEROL 45-21 MCG INHALER 1 PUFF 2 PUFF INHALATION ×2 (07:55→19:18)
[2023-03-12] MEDS: METOPROLOL SUCCINATE EXT REL 25 MG TABCR PO (08:23)
[2023-03-12] MEDS: CHOLECALCIFEROL 1,000 UNITS TABLET 2000 UNITS PO (08:23)
[2023-03-12] MEDS: FINASTERIDE 5 MG TABLET PO (08:23)
[2023-03-12] MEDS: TAMSULOSIN HCL 0.4 MG CAPSULE PO (08:23)
[2023-03-12] MEDS: SACUBITRIL/VALSARTAN 24-26 MG TABLET 1 TAB PO ×2 (08:23→20:37)
[2023-03-12] MEDS: OPTI-GEN TAB 1 TABLET PO (08:23)
[2023-03-12] MEDS: CYANOCOBALAMIN 1,000 MCG TABLET 1000 MCG PO (08:23)
[2023-03-12] MEDS: FUROSEMIDE 40 MG TABLET PO (08:24)
[2023-03-12] MEDS: SENNOSIDES 8.6 MG TABLET PO (08:24)
[2023-03-12] MEDS: ACETAMINOPHEN 325 MG TABLET 650 MG PO (08:24)
[2023-03-12] MEDS: ENOXAPARIN 40 MG/0.4 ML SYRINGE SUB-Q (08:28)
--- NOTE | 2023-03-12 10:26 | PM.IMPN ---
Progress Note: A&P Assessment and Plan (1) Closed L2 vertebral fracture: Onset Date: 03/06/23 Code(s): S32.029A - Unspecified fracture of second lumbar vertebra, initial encounter for closed fracture Status: Acute Assessment and Plan: Continue therapy and continue brace. Appropriate for [facility]p (2) Chronic anemia: Code(s): D64.9 - Anemia, unspecified Status: Acute Assessment and Plan: He has not had labs done at this facility for couple of years. Monitor. (3) Asthma: Code(s): J45.909 - Unspecified asthma, uncomplicated Status: Acute Assessment and Plan: No acute issues. Hemoglobin stable Follow-up CBC, iron panel ferritin, stool guaiac (4) Diastolic congestive heart failure: Code(s): I50.30 - Unspecified diastolic (congestive) heart failure Status: Acute Assessment and Plan: Compensated (5) Constipation: Code(s): K59.00 - Constipation, unspecified Status: Acute Assessment and Plan: Improved (6) Abdominal pain: Code(s): R10.9 - Unspecified abdominal pain Status: Acute Assessment and Plan: CT negative UA pending Subjective Date/time seen: 03/12/23 10:26 Interval history: Feeling better Exam Narrative: General: No obvious distress nontoxic-appearing male supine in bed in moderate pain. Weight: 86 kg. BMI: 27.2. HEENT: Normocephalic, atraumatic. PERRL, EOMI. Sclera anicteric. Oral mucosa is tacky. Neck: Supple. Respiratory: Respirations are nonlabored. Lung sounds are slightly diminished on the right but are otherwise clear to auscultation. Cardiovascular: Regular rate and rhythm with S1-S2. Gastrointestinal: Abdomen is soft, nontender, and nondistended with positive bowel sounds. Skin: Warm and dry. Extremities: No cyanosis or clubbing. Two to 3+ bilateral pedal edema to mid thighs. Radial and pedal pulses intact. Spine: Tender of low back. Neurological: Alert. Cranial nerves 2-12 are grossly intact. No gross focal deficits to casual conversation. He is neurovascular intact throughout the lower extremities with intact strength. Psychiatric: Pleasant and cooperative with normal mood and affect. Objective Data Vital Signs Vital Signs: Vital Signs - 24 hr 03/11/23 14:00 03/11/23 20:14 03/11/23 22:00 Temperature 97.7 F 97.1 F L Pulse Rate 68 73 Respiratory Rate 16 20 Blood Pressure 118/65 113/49 L Pulse Oximetry 97 93 95 Oxygen Delivery Nasal Cannula Oxygen Flow Rate 1 03/12/23 06:00 03/12/23 07:59 03/12/23 08:23 Temperature 99 F Pulse Rate 80 77 Respiratory Rate 20 Blood Pressure 96/55 L Pulse Oximetry 95 95 Oxygen Delivery Nasal Cannula Oxygen Flow Rate 1 03/12/23 08:20 Temperature Pulse Rate Respiratory Rate Blood Pressure Pulse Oximetry Oxygen Delivery Room Air Oxygen Flow Rate Intake/Output Intake/Output: Intake & Output 03/09/23 03/10/23 03/11/23 03/12/23 23:59 23:59 23:59 23:59 Intake Total 530 1220 400 368 Output Total 1350 1300 1100 200 Balance -820 -80 -700 168 Meds/Results Medications: Active Medications Generic Name Dose Route Start Last Admin Trade Name Freq PRN Reason Stop Dose Admin Acetaminophen 650 mg 03/06/23 15:56 03/12/23 08:24 Acetaminophen 325 Mg Tablet PO 650 mg Q4H PRN Administration Mild Pain (1-3) or Fever Hydrocodone Bitart/Acetaminophen 1 tab 03/06/23 15:56 03/12/23 05:48 Hydrocodone/Acetaminophen (*Crx) 5-325 Mg Tablet PO 1 tab Q4H PRN Administration Pain Rated 4-6 Cyanocobalamin 1,000 mcg 03/07/23 09:00 03/12/23 08:23 Cyanocobalamin 1,000 Mcg Tablet PO 1,000 mcg DAILY [facility] Administration Enoxaparin Sodium 40 mg 03/07/23 09:00 03/12/23 08:28 Enoxaparin 40 Mg/0.4 Ml Syringe SUB-Q 40 mg DAILY [facility] Administration Escitalopram Oxalate 10 mg 03/06/23 23:20 03/11/23 20:49 Escitalopram
[2023-03-12] MEDS: HYDROmorphone HCL INJ (*CRX) 1 MG/ML SYR 0.5 MG IV PUSH (13:31)
[2023-03-12] MEDS: ESCITALOPRAM OXALATE 10 MG TABLET PO (20:37)
[2023-03-13] VITALS (9 sets, daily range): BP systolic 105–160; BP diastolic 40–57; PULSE 74–822; RESP 14–20; TEMP 35.7–36.2; O2SAT 92–96
[2023-03-13] MEDS: HYDROcodone/acetaminophen (*CRX) 5-325 MG TABLET 1 TAB PO ×2 (00:43→20:55)
[2023-03-13] MEDS: LEVOTHYROXINE SODIUM 50 MCG TABLET PO (06:21)
[2023-03-13] MEDS: FLUTICASONE/SALMETEROL 45-21 MCG INHALER 1 PUFF 2 PUFF INHALATION ×2 (08:23→19:31)
--- NOTE | 2023-03-13 09:15 | PCPTNOTE ---
Attempted to see patient for PT, however patient was still eating breakfast.
[2023-03-13] MEDS: HYDROmorphone HCL INJ (*CRX) 1 MG/ML SYR 0.5 MG IV PUSH (09:36)
[2023-03-13] MEDS: TAMSULOSIN HCL 0.4 MG CAPSULE PO (09:40)
[2023-03-13] MEDS: SACUBITRIL/VALSARTAN 24-26 MG TABLET 1 TAB PO ×2 (09:40→20:53)
[2023-03-13] MEDS: SENNOSIDES 8.6 MG TABLET PO (09:40)
[2023-03-13] MEDS: CHOLECALCIFEROL 1,000 UNITS TABLET 2000 UNITS PO (09:40)
[2023-03-13] MEDS: FUROSEMIDE 40 MG TABLET PO (09:40)
[2023-03-13] MEDS: CYANOCOBALAMIN 1,000 MCG TABLET 1000 MCG PO (09:40)
[2023-03-13] MEDS: OPTI-GEN TAB 1 TABLET PO (09:40)
[2023-03-13] MEDS: FINASTERIDE 5 MG TABLET PO (09:40)
[2023-03-13] MEDS: METOPROLOL SUCCINATE EXT REL 25 MG TABCR PO (09:41)
[2023-03-13] MEDS: ENOXAPARIN 40 MG/0.4 ML SYRINGE SUB-Q (09:41)
[2023-03-13 09:53] LABS: Appearance Urine Cloudy (Clear); Bacteria Urine None Seen /hpf; Bilirubin Urine 1+ (Negative); Blood Urine Negative (Negative); Calcium Oxalate Crystals Urine Present /hpf; Color Urine Dark Yellow (Yellow); Glucose Urine UA Negative (Negative); Hyaline Casts Urine Present /lpf; Ketones Urine Trace mg/dL (Negative); Leukocyte Esterase Ur Trace LEU/UL (Negative); Nitrate Urine Negative (Negative); Non Pathogenic Casts 0-2; Protein Urine Trace mg/dL (Negative); RBC Urine 0-2 /hpf (0-2); Specific Grav Ur 1.022 (1.001-1.035); Squamous Epithelial Cell Urine None seen /hpf (Few); Urobilinogen Urine >=8.0 mg/dL (<2.0); WBC Urine 0-5 /hpf; pH Urine 6.5 (5.0-9.0)
[2023-03-13 09:54] LABS: Add Urine Microscopic? YES
--- NOTE | 2023-03-13 10:46 | PM.IMPN ---
Progress Note: A&P Assessment and Plan (1) Closed L2 vertebral fracture: Onset Date: 03/06/23 Code(s): S32.029A - Unspecified fracture of second lumbar vertebra, initial encounter for closed fracture Status: Acute Assessment and Plan: Continue therapy and continue brace. Appropriate for assisted (2) Chronic anemia: Code(s): D64.9 - Anemia, unspecified Status: Acute Assessment and Plan: He has not had labs done at this facility for couple of years. Monitor. (3) Asthma: Code(s): J45.909 - Unspecified asthma, uncomplicated Status: Acute Assessment and Plan: No acute issues. Hemoglobin stable Follow-up CBC, iron panel ferritin, stool guaiac (4) Diastolic congestive heart failure: Code(s): I50.30 - Unspecified diastolic (congestive) heart failure Status: Acute Assessment and Plan: Compensated (5) Constipation: Code(s): K59.00 - Constipation, unspecified Status: Acute Assessment and Plan: Improved (6) Abdominal pain: Code(s): R10.9 - Unspecified abdominal pain Status: Acute Assessment and Plan: CT negative UA pending Subjective Date/time seen: 03/13/23 10:46 Interval history: no complaints Exam Narrative: General: No obvious distress nontoxic-appearing male supine in bed in moderate pain. Weight: 86 kg. BMI: 27.2. HEENT: Normocephalic, atraumatic. PERRL, EOMI. Sclera anicteric. Oral mucosa is tacky. Neck: Supple. Respiratory: Respirations are nonlabored. Lung sounds are slightly diminished on the right but are otherwise clear to auscultation. Cardiovascular: Regular rate and rhythm with S1-S2. Gastrointestinal: Abdomen is soft, nontender, and nondistended with positive bowel sounds. Skin: Warm and dry. Extremities: No cyanosis or clubbing. Two to 3+ bilateral pedal edema to mid thighs. Radial and pedal pulses intact. Spine: Tender of low back. Neurological: Alert. Cranial nerves 2-12 are grossly intact. No gross focal deficits to casual conversation. He is neurovascular intact throughout the lower extremities with intact strength. Psychiatric: Pleasant and cooperative with normal mood and affect. Objective Data Vital Signs Vital Signs: Vital Signs - 24 hr 03/12/23 14:00 03/12/23 15:10 03/12/23 19:18 Temperature 97.7 F Pulse Rate 69 74 Respiratory Rate 18 18 Blood Pressure 102/50 L Pulse Oximetry 92 Oxygen Delivery Oxygen Flow Rate 03/12/23 21:12 03/12/23 20:00 03/13/23 04:30 Temperature 97.3 F L 97.1 F L Pulse Rate 82 79 Respiratory Rate 16 16 Blood Pressure 101/55 L 115/52 L Pulse Oximetry 95 95 Oxygen Delivery Room Air Oxygen Flow Rate 03/13/23 08:28 03/13/23 08:28 03/13/23 09:41 Temperature Pulse Rate 74 80 Respiratory Rate 20 Blood Pressure Pulse Oximetry 95 Oxygen Delivery Nasal Cannula Oxygen Flow Rate 1 Intake/Output Intake/Output: Intake & Output 03/10/23 03/11/23 03/12/23 03/13/23 23:59 23:59 23:59 23:59 Intake Total 1220 400 368 240 Output Total 1300 1100 400 600 Balance -80 -700 -32 -360 Meds/Results Medications: Active Medications Generic Name Dose Route Start Last Admin Trade Name Freq PRN Reason Stop Dose Admin Acetaminophen 650 mg 03/06/23 15:56 03/12/23 08:24 Acetaminophen 325 Mg Tablet PO 650 mg Q4H PRN Administration Mild Pain (1-3) or Fever Hydrocodone Bitart/Acetaminophen 1 tab 03/06/23 15:56 03/13/23 00:43 Hydrocodone/Acetaminophen (*Crx) 5-325 Mg Tablet PO 1 tab Q4H PRN Administration Pain Rated 4-6 Cyanocobalamin 1,000 mcg 03/07/23 09:00 03/13/23 09:40 Cyanocobalamin 1,000 Mcg Tablet PO 1,000 mcg DAILY [facility] Administration Docusate Sodium 100 mg 03/13/23 10:19 Docusate Sodium 100 Mg Capsule PO DAILY [facility] Enoxaparin Sodium 40 mg 03/07/23 09:00 03/13/23 09:41 Enoxaparin 40
[2023-03-13] MEDS: DOCUSATE SODIUM 100 MG CAPSULE PO (12:21)
[2023-03-13] MEDS: polyethylene glycoL 3350 17 GM POWD.PACK PO (12:21)
[2023-03-13] MEDS: ESCITALOPRAM OXALATE 10 MG TABLET PO (20:53)
[2023-03-14] VITALS (8 sets, daily range): BP systolic 126–138; BP diastolic 62–73; PULSE 72–75; RESP 14–20; TEMP 35.7–36.1; O2SAT 93–98
[2023-03-14] MEDS: LEVOTHYROXINE SODIUM 50 MCG TABLET PO (06:26)
[2023-03-14] MEDS: HYDROcodone/acetaminophen (*CRX) 5-325 MG TABLET 1 TAB PO ×3 (06:32→18:21)
[2023-03-14] MEDS: FLUTICASONE/SALMETEROL 45-21 MCG INHALER 1 PUFF 2 PUFF INHALATION ×2 (08:36→21:53)
[2023-03-14 08:44] LABS: Basophils Percent Auto 0.2 % (0.2-1.2); Eosinophils Percent Auto 0.5 % (0-4.4); Hematocrit 30.9 % (42.0-52.0); Hemoglobin 9.3 g/dL (14.0-18.0); Immature Granulocyte Absolute 0.05 K/mm3 (0.00-0.031); Immature Granulocyte Percent A 1.2 % (0-0.5); Lymphocytes Absolute Auto 1.25 K/mm3 (0.9-3.2); Mean Corpuscular HGB Conc 30.1 g/dl (32-36); Mean Corpuscular Hemoglobin 29.5 pg (26-34); Mean Corpuscular Volume 98.1 fl (80-100); Mean Platelet Volume 9.1 fl (7.4-10.4); Monocytes Absolute Auto 0.7 K/mm3 (0.1-0.6); Monocytes Percent Auto 17.3 % (2.6-8.5); Neutrophils Absolute Auto 2.1 K/mm3 (1.3-6.7); Neutrophils Percent Auto 50.8 % (45.5-73.1); Platelet Count Result 201 k/mm3 (150-375); Red Blood Count 3.15 M/mm3 (4.6-6.20); Red Cell Distribution Width 16.3 % (11.5-14.5); White Blood Count 4.2 K/mm3 (4.5-10.0)
[2023-03-14 09:03] LABS: Blood Urea Nitrogen 17 mg/dL (9-20); Calcium 9.2 mg/dL (8.4-10.2); Carbon Dioxide > 40 mmol/L (22-30); Chloride 92 mmol/L (98-107); Estimated CRCL calculation 75 ml/min; Estimated Glomerular Filt Rate > 60; Glucose 102 mg/dL (65-110); Potassium 4.1 mmol/L (3.4-5.0); Sodium 134 mmol/L (137-145)
[2023-03-14] MEDS: CHOLECALCIFEROL 1,000 UNITS TABLET 2000 UNITS PO (09:16)
[2023-03-14] MEDS: SACUBITRIL/VALSARTAN 24-26 MG TABLET 1 TAB PO ×2 (09:17→20:56)
[2023-03-14] MEDS: TAMSULOSIN HCL 0.4 MG CAPSULE PO (09:17)
[2023-03-14] MEDS: FUROSEMIDE 40 MG TABLET PO (09:17)
[2023-03-14] MEDS: METOPROLOL SUCCINATE EXT REL 25 MG TABCR PO (09:18)
[2023-03-14] MEDS: FINASTERIDE 5 MG TABLET PO (09:18)
[2023-03-14] MEDS: SENNOSIDES 8.6 MG TABLET PO (09:18)
[2023-03-14] MEDS: DOCUSATE SODIUM 100 MG CAPSULE PO (09:19)
[2023-03-14] MEDS: OPTI-GEN TAB 1 TABLET PO (09:19)
[2023-03-14] MEDS: CYANOCOBALAMIN 1,000 MCG TABLET 1000 MCG PO (09:19)
[2023-03-14] MEDS: polyethylene glycoL 3350 17 GM POWD.PACK PO (09:20)
[2023-03-14] MEDS: ENOXAPARIN 40 MG/0.4 ML SYRINGE SUB-Q (09:20)
--- NOTE | 2023-03-14 09:52 | PCOTNOTE ---
Attempted to see Patient for OT treatment session. Patient refused at this time due to complaining of increased pain, pain to bad
--- NOTE | 2023-03-14 11:05 | PM.IMPN ---
Progress Note: A&P Assessment and Plan (1) Closed L2 vertebral fracture: Onset Date: 03/06/23 Code(s): S32.029A - Unspecified fracture of second lumbar vertebra, initial encounter for closed fracture Status: Acute Assessment and Plan: Continue therapy and continue brace. Appropriate for senior care (2) Chronic anemia: Code(s): D64.9 - Anemia, unspecified Status: Acute Assessment and Plan: He has not had labs done at this facility for couple of years. Monitor. (3) Asthma: Code(s): J45.909 - Unspecified asthma, uncomplicated Status: Acute Assessment and Plan: No acute issues. Hemoglobin stable Follow-up CBC, iron panel ferritin, stool guaiac (4) Diastolic congestive heart failure: Code(s): I50.30 - Unspecified diastolic (congestive) heart failure Status: Acute Assessment and Plan: Compensated (5) Constipation: Code(s): K59.00 - Constipation, unspecified Status: Acute Assessment and Plan: Improved (6) Abdominal pain: Code(s): R10.9 - Unspecified abdominal pain Status: Acute Assessment and Plan: CT negative - ? cholecystitis w fluid around gb - not likely source of pain as pain is mostly RLP surgical eval UA negative Subjective Date/time seen: 03/14/23 11:05 Interval history: LRQ pain tolerating diet no new issues Exam Narrative: General: No obvious distress nontoxic-appearing male supine in bed in moderate pain. Weight: 86 kg. BMI: 27.2. HEENT: Normocephalic, atraumatic. PERRL, EOMI. Sclera anicteric. Oral mucosa is tacky. Neck: Supple. Respiratory: Respirations are nonlabored. Lung sounds are slightly diminished on the right but are otherwise clear to auscultation. Cardiovascular: Regular rate and rhythm with S1-S2. Gastrointestinal: Abdomen is soft, nontender, and nondistended with positive bowel sounds. Skin: Warm and dry. Extremities: No cyanosis or clubbing. Two to 3+ bilateral pedal edema to mid thighs. Radial and pedal pulses intact. Spine: Tender of low back. Neurological: Alert. Cranial nerves 2-12 are grossly intact. No gross focal deficits to casual conversation. He is neurovascular intact throughout the lower extremities with intact strength. Psychiatric: Pleasant and cooperative with normal mood and affect. Objective Data Vital Signs Vital Signs: Vital Signs - 24 hr 03/13/23 14:00 03/13/23 19:31 03/13/23 19:35 Temperature 96.5 F L Pulse Rate 822 H 80 Respiratory Rate 14 20 Blood Pressure 160/40 H Pulse Oximetry 92 93 Oxygen Delivery Nasal Cannula Oxygen Flow Rate 1 03/13/23 20:00 03/13/23 22:00 03/14/23 06:00 Temperature 96.3 F L 96.2 F L Pulse Rate 78 75 Respiratory Rate 14 14 Blood Pressure 105/57 L 126/62 Pulse Oximetry 93 95 96 Oxygen Delivery Nasal Cannula Oxygen Flow Rate 1 03/14/23 08:37 03/14/23 08:39 03/14/23 09:18 Temperature Pulse Rate 73 73 Respiratory Rate 20 Blood Pressure Pulse Oximetry 93 Oxygen Delivery Nasal Cannula Oxygen Flow Rate 1 Intake/Output Intake/Output: Intake & Output 03/11/23 03/12/23 03/13/23 03/14/23 23:59 23:59 23:59 23:59 Intake Total 540 593 0388 618 Output Total 1100 637 064 0512 Balance -700 -32 420 -582 Meds/Results Medications: Active Medications Generic Name Dose Route Start Last Admin Trade Name Freq PRN Reason Stop Dose Admin Acetaminophen 650 mg 03/06/23 15:56 03/12/23 08:24 Acetaminophen 325 Mg Tablet PO 650 mg Q4H PRN Administration Mild Pain (1-3) or Fever Hydrocodone Bitart/Acetaminophen 1 tab 03/06/23 15:56 03/14/23 06:32 Hydrocodone/Acetaminophen (*Crx) 5-325 Mg Tablet PO 1 tab Q4H PRN Administration Pain Rated 4-6 Cyanocobalamin 1,000 mcg 03/07/23 09:00 03/14/23 09:19 Cyanocobalamin 1,000 Mcg Tablet PO 1,000 mcg DAILY IHSAN Administration Docusate Sodium
--- NOTE | 2023-03-14 14:03 | PM.CNGS ---
Assessment and Plan Assessment and plan (1) Cholelithiasis: Code(s): K80.20 - Calculus of gallbladder without cholecystitis without obstruction Status: Acute Assessment and Plan: Patient complaining of intermittent abdominal pain with inconsistent location. He is currently complaining of pain near his right groin. CT showed evidence of cholelithiasis with some gallbladder inflammation a few days ago. His pain is atypical for gallbladder disease and does not seem to be aggravated by fatty meals. He is tolerating a regular diet. His white blood cell count is normal and LFTs were normal on admission. His abdominal exam is completely benign. He has multiple comorbidities and would be a poor surgical candidate. We would recommend to follow a low-fat diet and continue to monitor symptoms at this time. If he were to develop RUQ abdominal pain or was unable to tolerate his diet, then we could further evaluate his gallbladder at that time. Discussed this with the family and patient who agree with this plan. Thank you for allowing us to see the patient in consultation. (2) Abdominal pain: Code(s): R10.9 - Unspecified abdominal pain Status: Acute Assessment and Plan: Does not appear to be related to his gallbladder. Consider other etiologies for his pain. See plan above. (3) Closed L2 vertebral fracture: Onset Date: 03/06/23 Code(s): S32.029A - Unspecified fracture of second lumbar vertebra, initial encounter for closed fracture Status: Acute (4) CHF (congestive heart failure): Onset Date: 04/20/22 Qualifiers: Heart failure type: diastolic Heart failure chronicity: chronic Qualified Code(s): I50.32 - Chronic diastolic (congestive) heart failure Code(s): I50.9 - Heart failure, unspecified Status: Acute (5) Constipation: Code(s): K59.00 - Constipation, unspecified Status: Acute Assessment and Plan: Could be contributing to his abdominal pain. Plan I have discussed the patient's case and plan of care with Dr. Galeana. History of Present Illness Consult details Consult date: 03/14/23 Reason for consult: other (Possible cholecystitis) Requesting physician: Curt Mayfield MD Narrative: This is an 88-year-old man with multiple medical problems, who presented to the ER for evaluation of low back pain after suffering a fall on 03/03/2023. Workup in the ER showed an L2 fracture and he was admitted. He was evaluated by neurosurgery who recommended LSO bracing. After a few days in the hospital, he began complaining of abdominal pain. This prompted a CT scan of the abdomen and pelvis on 03/11/2023 that showed cholelithiasis with gallbladder hydrops and inflammation, and bladder wall thickening/inflammation. His white blood cell count has been normal. LFTs on admission were normal. Our service has now been consulted for surgical evaluation of the CT findings of possible cholecystitis. His family is at the bedside and helps assists in providing history. He has had some confusion while being admitted due to pain medication per family. His abdominal pain has migrated to different locations and is intermittent. He has complained of left lower quadrant pain and pain near his right groin. His family reports that he has dealt with constipation while being admitted and his abdominal pain has been relieved after having a bowel movement. He has been tolerating a diet without any nausea or vomiting. The patient has not had any aggravating pain with fatty foods. He reports his pain is primarily located in right groin and suprapubic area, which is aggravated by standing up and gets better after he is walking. The pain typically occurs upon waking in the morning. Review of Systems Review of Systems: ROS unobtainable: Yes unobtainable due to mental status (Limited by confusion) PMFSH Past Medical History Medical History (Reviewed 03/14/23 @ 16:38 b
[2023-03-14] MEDS: ACETAMINOPHEN 325 MG TABLET 650 MG PO (20:56)
[2023-03-14] MEDS: ESCITALOPRAM OXALATE 10 MG TABLET PO (20:56)
[2023-03-15] MEDS: LEVOTHYROXINE SODIUM 50 MCG TABLET PO (05:30)
[2023-03-15] MEDS: HYDROcodone/acetaminophen (*CRX) 5-325 MG TABLET 1 TAB PO (05:31)
[2023-03-15 06:00] VITALS: BP 137/69; PULSE 84; RESP 16; TEMP 35.9; O2SAT 91
--- NOTE | 2023-03-15 06:52 | PC.NURSE ---
around 0530, patient heard in room speaking loudly as if trying to get someone's attention. PCT entered room to find patient having visual hallucinations of his family members in his room. This RN came to room to assess patient. Pt found to have removed nasal cannula, and SpO2 was unsteady, between 76-80%. Oxygen reapplied, and pt quickly recovered to 92% on 2L O2 via NC. Pt understood that his family had not really been in his room, but states he felt like it was real, and that he had been awake. Pt educated on effects of hypoxia. Pt remains on 2L at this time. Pt reassured. Frequent rounding initiated.
[2023-03-15 08:45] VITALS: O2SAT 95
[2023-03-15 08:50] VITALS: O2SAT 95
[2023-03-15] MEDS: FUROSEMIDE 40 MG TABLET PO (08:56)
[2023-03-15 08:57] VITALS: PULSE 82
[2023-03-15] MEDS: METOPROLOL SUCCINATE EXT REL 25 MG TABCR PO (08:57)
[2023-03-15] MEDS: SENNOSIDES 8.6 MG TABLET PO (08:57)
[2023-03-15] MEDS: CHOLECALCIFEROL 1,000 UNITS TABLET 2000 UNITS PO (08:58)
[2023-03-15] MEDS: SACUBITRIL/VALSARTAN 24-26 MG TABLET 1 TAB PO (08:59)
[2023-03-15] MEDS: TAMSULOSIN HCL 0.4 MG CAPSULE PO (08:59)
[2023-03-15] MEDS: CYANOCOBALAMIN 1,000 MCG TABLET 1000 MCG PO (08:59)
[2023-03-15] MEDS: DOCUSATE SODIUM 100 MG CAPSULE PO (09:00)
[2023-03-15] MEDS: FLUTICASONE/SALMETEROL 45-21 MCG INHALER 1 PUFF 2 PUFF INHALATION (09:00)
[2023-03-15] MEDS: FINASTERIDE 5 MG TABLET PO (09:01)
[2023-03-15] MEDS: OPTI-GEN TAB 1 TABLET PO (09:02)
[2023-03-15] MEDS: polyethylene glycoL 3350 17 GM POWD.PACK PO (09:02)
[2023-03-15 09:03] VITALS: PULSE 77; RESP 18; O2SAT 94
[2023-03-15] MEDS: ENOXAPARIN 40 MG/0.4 ML SYRINGE SUB-Q (09:13)
--- NOTE | 2023-03-15 09:35 | PCPTNOTE ---
Attempted to see patient for PT this morning, however patient declined due to not feeling well. RN reported patient was been having hallucinations last night and this morning.
--- NOTE | 2023-03-15 10:17 | P.DS_ITS ---
DS: Admitting Diagnosis Discharge Date 03/15/2023 Admitting Diagnosis vertebral fracture DS: Discharge Diagnosis Discharge Diagnosis (1) Closed L2 vertebral fracture: Onset Date: 03/06/23 Code(s): S32.029A - Unspecified fracture of second lumbar vertebra, initial encounter for closed fracture Status: Acute (2) Cholelithiasis: Code(s): K80.20 - Calculus of gallbladder without cholecystitis without obstruction Status: Acute DS: Summary Hospital Course Hospital Course: Patient admitted with close L2 vertebral fracture. PT and OT were consulted. Patient is being discharged to rehab. He had some abdominal pain for which no surgery was consulted. He has gallstones but not causing significant abnormality. No further intervention at this time. Patient is stable and is being discharged to rehab Time Spent with Patient Time attestation: Total time spent providing and/or coordinating discharge services: Discharge Plan Discharge Consulting providers: Joana Bingham; Shan Galeana Discharging Clinician: Frankie Shah Anticipated Discharge Date/Time: 03/15/23 10:16 Patient Disposition: SNF Activity: no preference Diet: heart healthy Patient Instructions: Back Pain (GEN) Stand Alone Forms: General Discharge Information Follow-up/Referrals: Dawson Marrero MD [Primary Care Provider] - Discharge Medications: Continued cholecalciferol (vitamin D3) 50 mcg (2,000 unit) tablet 2,000 unit PO DAILY cyanocobalamin (vitamin B-12) 1,000 mcg tablet 1,000 mcg PO DAILY Centrum Silver Men 300-600-300 mcg tablet 1 tablet PO DAILY Entresto 24-26 mg tablet 1 tablet PO BID Patient Comments: started by hearing stenographer 04/20/2022 escitalopram oxalate [Lexapro] 10 mg tablet 10 mg PO . q.h.s. Qty: 90 3RF tamsulosin [Flomax] 0.4 mg capsule 0.4 mg PO DAILY Qty: 30 11RF Hold Instructions: patient reports not taking finasteride 5 mg tablet 5 mg PO DAILY Qty: 90 3RF furosemide 40 mg tablet 40 mg PO QAM Qty: 90 3RF metoprolol succinate 25 mg tablet extended release 24 hr 25 mg PO DAILY Qty: 90 3RF levothyroxine 50 mcg tablet 50 mcg PO DAILY Qty: 90 3RF fluticasone propion-salmeterol [Advair Diskus] 100-50 mcg/dose blister with device 1 inh inhalation Q12H Qty: 180 3RF Date of admission: 03/06/23 15:56 Primary Care Provider: Dawson Marrero Admitting Provider: Bret Huerta Attending physician on admission: Frankie Shah Condition: Stable
[2023-03-15 15:53] LABS: IFOB Positive Control Positive; Immunochemical Fecal Occult Bl Negative (N)
== END 2023-03-15 15:15 ==
LOC: ANHED 13:09 → ANH3MEDSUR 17:20
PROVIDERS: Chiropractor; Hospitalist; Physician Assistant; Admitting Provider Internal Medicine; Emergency Provider Emergency Medicine; PCP Family Medicine; Visit Provider Hospitalist
DX: S32.029A Unspecified fracture of second lumbar vertebra, initial encounter for closed fracture (principal); K80.20 Calculus of gallbladder without cholecystitis without obstruction; W01.0XXA Fall on same level from slipping, tripping and stumbling without subsequent striking against object, initial encounter; D64.9 Anemia, unspecified; J45.909 Unspecified asthma, uncomplicated; I11.0 Hypertensive heart disease with heart failure; I50.30 Unspecified diastolic (congestive) heart failure; K59.00 Constipation, unspecified; K82.1 Hydrops of gallbladder; F41.9 Anxiety disorder, unspecified; E03.9 Hypothyroidism, unspecified; E78.2 Mixed hyperlipidemia; E66.9 Obesity, unspecified; N40.0 Benign prostatic hyperplasia without lower urinary tract symptoms; Z68.25 Body mass index [BMI] 25.0-25.9, adult; G47.33 Obstructive sleep apnea (adult) (pediatric); M16.11 Unilateral primary osteoarthritis, right hip; R00.0 Tachycardia, unspecified; D51.9 Vitamin B12 deficiency anemia, unspecified; E55.9 Vitamin D deficiency, unspecified; Z79.84 Long term (current) use of oral hypoglycemic drugs; Z90.2 Acquired absence of lung [part of]; Z87.891 Personal history of nicotine dependence; Z85.118 Personal history of other malignant neoplasm of bronchus and lung; Z79.899 Other long term (current) drug therapy
CPT/HCPCS: 36415; 72128; 72131; 73502; 74176; 80048; 80053; 81001; 82274; 82728; 83540; 83550; 83735; 84443; 85025; 85027; 85610; 85730; 93970; 94640; 96372; 96374; 96375; 96376; 97110; 97116; 97161; 97166; 97530; 97535; 99285; A9270; G0378; J1170; J1650; J1885; J3010